=== PATIENT | female | born 1975 | race Two or more races ===

== ENCOUNTER 2024-02-28 01:51 | Emergency (ER) | payer MEDICAID ==
[~2024-02-28] VITALS: Ht 160 cm; Wt 100.9 kg
[~2024-02-28 01:51] MED LIST: [UNRECOGNIZED DRUG - OTHER]
[2024-02-28 02:16] VITALS: BP 97/42; PULSE 66; RESP 18; TEMP 97.9; O2SAT 100
== END 2024-02-28 03:13 | disposition left against medical advice (07) ==
LOC: EMS 01:51
DX: R51.9 Headache, unspecified (principal); M54.2 Cervicalgia; M54.6 Pain in thoracic spine; R07.81 Pleurodynia; Z53.21 Procedure and treatment not carried out due to patient leaving prior to being seen by health care provider